=== PATIENT | female | born 1980 | race Caucasian/White ===

== ENCOUNTER 2018-07-28 15:58 | Emergency (ER) | payer OTHER ==
--- NOTE | 2018-07-28 16:27 | PDOC ---
Rapid Medical Evaluation Medical Evaluation: Allergies Allergy/AdvReac Type Severity Reaction Status Date / Time No Known Allergies Allergy Verified 11/06/17 16:17 I have performed a brief in-person evaluation of this patient. 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 07/28/18 16:25
[2018-07-28] MEDS ORDERED: SODIUM CHLORIDE 1,000 ML IV STA (16:28)
[2018-07-28] MEDS ORDERED: ONDANSETRON 4 MG/2 ML VIAL IVPB ONE (16:28)
[2018-07-28 16:30] VITALS: BMI 31.7
[2018-07-28 17:03] LABS: BASO % 0.3 % (0-2.0); EOS % 0.3 % (0-4.5); HEMATOCRIT 38.7 % (32.4-45.2); HEMOGLOBIN 13.8 GM/dL (10.7-15.3); LYMPH % 14.2 % (8-40); MCH 32.3 pg (25.7-33.7); MCHC 35.6 g/dl (32.0-36.0); MEAN CELL VOLUME 90.8 fl (80-96); MEAN PLT VOLUME 8.3 fl (7.5-11.1); MONO % 5.2 % (3.8-10.2); PLATELET COUNT 302 K/MM3 (134-434); RBC 4.27 M/mm3 (3.60-5.2); RDW 12.8 % (11.6-15.6)
[2018-07-28 17:48] LABS: ANION GAP 8 MMOL/L (8-16); BLOOD UREA NITROGEN 8 mg/dL (7-18); CALCIUM 9.1 mg/dL (8.5-10.1); CHLORIDE 102 mmol/L (98-107); CO2 25 mmol/L (21-32); CREATININE 0.5 mg/dL (0.55-1.3); GLUCOSE,RANDOM 83 mg/dL (74-106); POTASSIUM 3.9 mmol/L (3.5-5.1); SODIUM 135 mmol/L (136-145)
[2018-07-28 18:32] LABS: URINE APPEARANCE TURBID; URINE BILIRUBIN NEGATIVE (<2.0 mg/dL); URINE COLOR YELLOW; URINE GLUCOSE (UA) NEGATIVE (NEGATIVE); URINE KETONE 2+ (NEGATIVE); URINE LEUK ESTERASE NEGATIVE (NEGATIVE); URINE NITRITE NEGATIVE (NEGATIVE); URINE PROTEIN 1+ (NEGATIVE); URINE UROBILINOGEN NEGATIVE mg/dL (0.2-1.0)
[2018-07-28 18:37] LABS: EPI CELLS RARE /HPF (FEW); URINE BACTERIA RARE /hpf (NONE SEEN); URINE MUCUS MODERATE
--- NOTE | 2018-07-28 19:27 | PDOC ---
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 She states this is similar to prior miscarriages. She additionally notes nausea and vomiting and mild headache with mild photophobia and phonophobia, mild lightheadedness. Denies dysuria, fever, chills, diarrhea, constipation, chest pain, SOB, leg swelling, or other symptoms. Past History - Past Medical History Allergies/Adverse Reactions: Allergies Allergy/AdvReac Type Severity Reaction Status Date / Time No Known Allergies Allergy Verified 07/28/18 16:30 Home Medications: Ambulatory Orders NK [No Known Home Medication] 07/28/18 COPD: No - Immunization History Immunization Up to Date: Yes - Suicide/Smoking/Psychosocial Hx Smoking History: Never smoked Have you smoked in the past 12 months: No Information on smoking cessation initiated: No Hx Alcohol Use: No Drug/Substance Use Hx: No Review of Systems - Review of Systems Able to Perform ROS?: Yes Comments:: 07/28/18 19:40 GEN: no fever, chills, malaise, generalized weakness, or weight change HEENT: no ear pain, sore throat, vision change, or eye pain CV: no chest pain, palpitations, lightheadedness, syncope, or edema RESP: no cough, wheezing, or SOB GI: abdominal pain, nausea, vomiting, no diarrhea, constipation, or white/black/ bloody stool : vaginal bleeding with clot, no dysuria, hematuria, incontinence, retention, or discharge MSK: low back pain, no neck pain, muscle weakness/pain, or joint swelling/pain NEURO: headache, no seizure, vertigo, numbness, tingling, or focal weakness PSYCH: no substance use, no behavior change SKIN: no jaundice, no rash ROS otherwise negative except as noted in HPI *Physical Exam - Vital Signs Last Vital Signs Temp Pulse Resp BP Pulse Ox 98.0 F 84 16 139/92 97 07/28/18 16:27 07/28/18 16:27 07/28/18 16:27 07/28/18 16:27 07/28/18 16:27 - Physical Exam Comments: 07/28/18 19:41 GENERAL: well-appearing, A/Ox4, no distress, answers questions appropriately HEENT: PERRLA, EOMI, moist mucous membranes NECK/BACK: no midline ttp, no spinal stepoff or deformity, no hematoma, full ROM , neck supple CARDIOVASCULAR: regular rate/rhythm, normal S1S2, no MGR, strong peripheral pulses, capillary refill <2 seconds, extremities wwp, no edema LUNGS/RESPIRATORY: no respiratory distress, CTAB GI/ABDOMEN: symmetric [id number], not visibly gravid, normoactive BS, soft, no ttp, no midline pulsatile masses : no CVA tenderness, pelvic normal externally, scant blood in vaginal vault, os closed, no adnexal ttp or masses, no CMT EXTREMITIES: no muscle atrophy, no acute deformity, no edema SKIN: warm and dry, no pallor, no jaundice, no rash, no bruising, no skin breakdown, no cuts, no lesions NEUROLOGICAL: GCS 15, CN II-XII grossly intact, 5/5 strength proximally and distally, no facial droop Moderate Sedation - Procedure Monitoring Vital Signs: Procedure Monitoring Vital Signs Temperature 98.0 F 07/28/18 16:27 Pulse Rate 84 07/28/18 16:27 Respiratory Rate 16 07/28/18 16:27 Blood Pressure 139/92 07/28/18 16:27 O2 Sat by Pulse Oximetry (%) 97 07/28/18 16:27 ED Treatment Course - LABORATORY CBC & Chemistry Diagram: 07/28/18 16:47 07/28/18 16:47 - ADDITIONAL ORDERS Additional order review: Laboratory Results 07/28/18 07/28/18 07/28/18 16:51 16:47 16:47 Sodium 135 L Potassium 3.9 Chloride 102 Carbon Dioxide 25 Anion Gap 8 BUN 8 Creatinine 0.5 L Creat Clearance w eGFR > 60 Random Glucose 83 Calcium 9.1 Beta HCG, Quant 25270.4 Urine Color Yellow Urine Appearance Turbid Urine pH 5.0 Ur Specific [place] 1.029 Urine Protein 1+ H Urine Glucose (UA) Negative Urine Ketones 2+ H Urine Blood 2+ H Urine Nitrite Negative Urine Bilirubin Negative Urine Urobilinogen Negative Ur Leukocyte Esterase Negative Urine WBC (Auto) 15 Urine RBC (Auto) 3 Ur Epithelial Cells Rare Urine Bacteria Rare Urine Mucus Moderate Blood Type B POSITIVE Antibody Screen Negative 07/28/18 16:47 RBC 4.27 MCV 90.8 MCHC 35.6 RDW 12.8 MPV 8.3 Neutrophils % 80.0 D Lymphocytes % 14.2 D Monocytes % 5.2 Eosinophils % 0.3 Basophils % 0.3 Medical Decision Making - Medical Decision Making 07/28/18 19:42 First trimester female p/w vaginal bleeding and/or lower abdominal pain at <20 wks gestation. Initial Vital Signs Temp Pulse Resp BP Pulse Ox 98.0 F 84 16 139/92 97 07/28/18 16:27 07/28/18 16:27 07/28/18 16:27 07/28/18 16:27 07/28/18 16:27 Exam: As noted in Physical Exam section. DDX IBNLT: threatened/inevitable/incomplete/complete/septic , ectopic, PID, TOA/cervicitis, endometritis, ruptured ovarian cyst, ovarian torsion, malignancy, menorrhagia, endometriosis, rectal bleed, hematuria, constipation, fibroids, etc. W/U ordered: Labs as noted below, TVUS. TX ordered: IVF, Zofran Laboratory Tests 07/28/18 07/28/18 07/28/18 16:47 16:47 16:47 WBC 11.0 H RBC 4.27 Hgb 13.8 Hct 38.7 MCV 90.8 MCH 32.3 MCHC 35.6 RDW 12.8 Plt Count 302 MPV 8.3 Absolute Neuts (auto) 8.8 H Neutrophils % 80.0 D Lymphocytes % 14.2 D Monocytes % 5.2 Eosinophils % 0.3 Basophils % 0.3 Nucleated RBC % 0 Sodium 135 L Potassium 3.9 Chloride 102 Carbon Dioxide 25 Anion Gap 8 BUN 8 Creatinine 0.5 L Creat Clearance w eGFR > 60 Random Glucose 83 Calcium 9.1 Beta HCG, Quant 19983.4 Urine Color Urine Appearance Urine pH Ur Specific [place] Urine Protein Urine Glucose (UA) Urine Ketones Urine Blood Urine Nitrite Urine Bilirubin Urine Urobilinogen Ur Leukocyte Esterase Urine WBC (Auto) Urine RBC (Auto) Ur Epithelial Cells Urine Bacteria Urine Mucus Blood Type B POSITIVE Antibody Screen Negative 07/28/18 16:51 WBC RBC Hgb Hct MCV MCH MCHC RDW Plt Count MPV Absolute Neuts (auto) Neutrophils % Lymphocytes % Monocytes % Eosinophils % Basophils % Nucleated RBC % Sodium Potassium Chloride Carbon Dioxide Anion Gap BUN Creatinine Creat Clearance w eGFR Random Glucose Calcium Beta HCG, Quant Urine Color Yellow Urine Appearance Turbid Urine pH 5.0 Ur Specific [place] 1.029 Urine Protein 1+ H Urine Glucose (UA) Negative Urine Ketones 2+ H Urine Blood 2+ H Urine Nitrite Negative Urine Bilirubin Negative Urine Urobilinogen Negative Ur Leukocyte Esterase Negative Urine WBC (Auto) 15 Urine RBC (Auto) 3 Ur Epithelial Cells Rare Urine Bacteria Rare Urine Mucus Moderate Blood Type Antibody Screen US/ <14WKS US Obstetrical ultrasound Clinical information: possible miscarriage The exam was performed utilizing transabdominal scanning. The exam demonstrates a single viable intrauterine gestation at approximately 9 weeks 4 days. cardiac rate 176 BPM. A small subchorionic implantation bleed is noted. A 3.7 cm subserosal leiomyoma is noted along the uterine fundus. The cervix appears to be closed with an approximately 3.7 cm in length. A 2.7 cm right ovarian cyst is seen containing a small amount of internal debris. The left ovary appears unremarkable. No Doppler evidence of ovarian torsion, sensitivity 70%. No free intraperitoneal fluid is seen. Impression: Single viable intrauterine gestation at approximately 9 weeks 4 days. Small subchorionic implantation bleed. 3.7 cm fundal leiomyoma. 2.7 cm right ovarian cyst. Repeat VS: DISCHARGE The Pt does not require Rhogam. Workup is not concerning for emergency-level pathology at this time. The Pt is appropriate for discharge home w/ close outpatient f/u. The Pt is comfortable with this plan and will follow up with their PAINTER [employer]ILRO[employer] in 1- 3 days. She is counseled to have beta-hCG trended and f/u US within one week. She will take primarily Tylenol for pain. Specific return precautions are discussed and they will come back to the ER if necessary. *DC/Admit/Observation/Transfer Diagnosis at time of Disposition: Threatened in first trimester, Hyperemesis arising during Subchorionic hemorrhage in first trimester Qualifiers: Fetus number: single or unspecified fetus Qualified Code(s): O41.8X10 - Other specified disorders of amniotic fluid and membranes, first trimester, not applicable or unspecified; O46.8X1 - Other antepartum hemorrhage, first trimester - Discharge Dispostion Condition at time of disposition: Stable Decision to Admit order: No - Referrals - Patient Instructions Additional Instructions: You were seen in the ER for vaginal bleeding in . We did an exam, laboratory work on your blood and urine, and an ultrasound. After our assessment , we believe that you have NOT had a miscarriage at this time, and the bleeding you experienced is most likely due to a "subchorionic hemorrhage" that was found on the ultrasound. This does put you at higher risk for miscarriage, so you will need to follow up closely with an [employer] or return to the ER to recheck your hormone levels and repeat the ultrasound within a week. We do not believe you are having a medical emergency at this time, and you are safe to go home. Please take Tylenol for any mild-moderate pain. Follow up with your senior architect/design manager and primary care provider in the next 1-3 days. Call their clinic [facility], tell them you were seen in the ER, and tell them you need an appointment. Please come back to the ER at any time (24 hours a day) for any new or worsening symptoms, like worsening pelvic pain, discharge, high fever, headache, seizure, fainting, anemia, large amount of blood loss, or other symptoms. If you are having severe or life threatening symptoms, or symptoms that make it unsafe to drive or have someone drive you, please call 911. - Post Discharge Activity
[2018-07-28] MEDS ORDERED: ONDANSETRON 4 MG/2 ML VIAL ONE ×2 (19:31→19:37)
--- NOTE | 2018-07-28 19:38 | PDOC ---
Attending Attestation - HPI HPI: 07/28/18 19:46 The patient is a 37 year old female (), lmp 10, with no significant past medical history who presents to the emergency department with vaginal bleeding since earlier today. The patient reports that she was at home today when she noted some vaginal bleeding described as bright red blood. She states that she felt as if she passed a large clot. The patient reports that she is concerned for a miscarriage as, she has experienced it in the past and, she states that it feels similar. The patient reports that she was seen by her OB 1 weeks ago by which everything was said to be normal. The patient also reports some associated nausea, vomiting, and headache with photophobia and phonophobia . On exam, the patient reports that her bleeding has slowed down since earlier . she denies any urinary symptoms. She denies any smoking, drinking or drug use. The patient denies any other symptoms. She denies any fever, chills, diarrhea, constipation, she denies any chest pain, shortness of breath, or dizziness. The patient denies any other complaints. Documentation prepared by Ascencion Ibarra, acting as medical care administrator for Igor Eugene MD. <Ascencion Ibarra - Last Filed: 07/28/18 19:46> - Resident Resident Name: Giselle Reno - ED Attending Attestation I have performed the following: I have examined & evaluated the patient, The case was reviewed & discussed with the resident, I agree w/resident's findings & plan, Exceptions are as noted - Physicial Exam PE: 07/28/18 20:01 Agree with exam as documented by resident - Medical Decision Making 07/28/18 20:02 Viable with elevated risk of miscarriage. Investigations showed a closed os with 9w viable IUP a/w small subchorionic hemorrhage, Rh+ Will need close expectant management to follow the , trend hcg, and repeat TVUS within a week. Pt has an OB who is providing pre-jared care Pt's nausea improved after tx c/w plan for close OB follow up <Igor Eugene - Last Filed: 07/28/18 22:20>
[2018-07-28 22:42] VITALS: BP 132/88; PULSE 70; TEMP 98.6
== END 2018-07-28 22:42 | disposition home or self-care (01) ==
LOC: JER 15:58
DX: O26.891 Other specified pregnancy related conditions, first trimester (principal); O21.0 Mild hyperemesis gravidarum; O41.8X10 Other specified disorders of amniotic fluid and membranes, first trimester, not applicable or unspecified; O46.8X1 Other antepartum hemorrhage, first trimester; O34.11 Maternal care for benign tumor of corpus uteri, first trimester; Z3A.09 9 weeks gestation of pregnancy; O34.81 Maternal care for other abnormalities of pelvic organs, first trimester; N83.291 Other ovarian cyst, right side
CPT/HCPCS: 36415; 76801-TC; 80048; 81003; 81015; 84702; 85025; 86850; 86900; 86901; 99283-25; J7030

== ENCOUNTER 2019-02-18 23:00 | Inpatient (IN) | payer OTHER ==
[2019-02-19] MEDS ORDERED: BUTORPHANOL TARTRATE 2 MG/ML VIAL ONE ×2 (00:22→05:40)
[2019-02-19] MEDS ORDERED: PROMETHAZINE HCL 25 MG/1 ML VIAL ONE ×2 (00:23→05:41)
[2019-02-19 00:31] LABS: BASO % 0.1 % (0-2.0); EOS % 0.8 % (0-4.5); HEMATOCRIT 37.4 % (32.4-45.2); HEMOGLOBIN 12.5 GM/dL (10.7-15.3); LYMPH % 13.2 % (8-40); MCH 29.6 pg (25.7-33.7); MCHC 33.4 g/dl (32.0-36.0); MEAN CELL VOLUME 88.6 fl (80-96); MEAN PLT VOLUME 9.1 fl (7.5-11.1); MONO % 6.6 % (3.8-10.2); NEUT % 79.3 % (42.8-82.8); PLATELET COUNT 214 K/MM3 (134-434); RBC 4.22 M/mm3 (3.60-5.2); RDW 14.8 % (11.6-15.6); WHITE BLOOD COUNT 12.1 K/mm3 (4.0-10.0)
[2019-02-19] MEDS ORDERED: DEXTROSE 5%-LACTATED RINGERS 1,000 ML IV SCH (00:45)
[2019-02-19] MEDS ORDERED: BUTORPHANOL TARTRATE 2 MG/ML VIAL IVPB ONE ×2 (00:45→06:00)
[2019-02-19] MEDS ORDERED: PROMETHAZINE HCL 25 MG/1 ML VIAL IVPB ONE ×2 (00:45→06:00)
[2019-02-19 00:46] LABS: INR 0.92 (0.83-1.09); PROTHROMBIN TIME (PATIENT) 10.9 SEC (9.7-13.0)
[2019-02-19 00:48] LABS: ACTIVATED PTT 25.9 SECONDS (25.2-36.5)
[2019-02-19 00:52] LABS: BLOOD UREA NITROGEN 6.6 mg/dL (7-18); CALCIUM 8.9 mg/dL (8.5-10.1); CREATININE 0.7 mg/dL (0.55-1.3); POTASSIUM 3.8 mmol/L (3.5-5.1)
[2019-02-19 01:20] VITALS: BMI 41.0
--- NOTE | 2019-02-19 06:04 | HP ---
Past Medical History - Admission Chief Complaint: Labor pain History of Present Illness: 38 yo , LMP 05/21/18, EDC 02/25/19, @39 weeks gestation, admitted for rupture of membrane associated with labor pain. Upon admission she was 2cm dilated. History Source: Patient Limitations to Obtaining History: No Limitations - Past Medical History ...: 5 ...Para: 0 ...Term: 0 ...: 0 ...Spon : 4 ...Induced : 0 ...Multiple Gestation: 0 ...LMP: 05/21/18 ... Weeks Gestation by Dates: 39.0 ...EDC by Dates: 02/25/19 ...EDC by Sono: 02/25/19 - Past Surgical History Past Surgical History: Yes: None Hx Myomectomy: No Hx Transabdominal Cerclage: No - Smoking History Smoking history: Never smoked Have you smoked in the past 12 months: No - Alcohol/Substance Use Hx Alcohol Use: No History of Substance Use: reports: None - Social History History of Recent Travel: No Home Medications - Allergies Allergies/Adverse Reactions: Allergies Allergy/AdvReac Type Severity Reaction Status Date / Time No Known Allergies Allergy Verified 07/28/18 16:30 - Home Medications Home Medications: Ambulatory Orders Vitamins (Sjr) - 1 tab PO DAILY 02/11/19 Family Disease History - Family Disease History Family History: Unremarkable Review of Systems - Review of Systems Constitutional: reports: No Symptoms Eyes: reports: No Symptoms HENT: reports: No Symptoms Neck: reports: No Symptoms Cardiovascular: reports: No Symptoms Respiratory: reports: No Symptoms Gastrointestinal: reports: No Symptoms Genitourinary: reports: Pain, Other (Rupture of membrane) Breasts: reports: No Symptoms Reported Musculoskeletal: reports: No Symptoms Integumentary: reports: No Symptoms Neurological: reports: No Symptoms Endocrine: reports: No Symptoms Hematology/Lymphatic: reports: No Symptoms Psychiatric: reports: No Symptoms Pain Intensity: 9 Physical Exam - Maternity Vital Signs: Vital Signs Temperature 98.0 F 02/19/19 04:00 Pulse Rate 98 H 02/19/19 04:00 Respiratory Rate 02/19/19 04:00 Blood Pressure 134/78 02/19/19 04:00 O2 Sat by Pulse Oximetry (%) Constitutional: Yes: Well Nourished Eyes: Yes: Conjunctiva Clear HENT: Yes: Atraumatic Neck: Yes: Supple Cardiovascular: Yes: Regular Rate and Rhythm Lungs: Clear to auscultation - Abdominal Exam/OB Number of Fetuses: Single Presentation: Vertex - Vaginal Exam/OB Dilatation (cm): 2 Effacement (%): 70 Amniotic Membrane Status: Ruptured Amniotic Fluid: Yes: Clear Presentation: Vertex/Position Station: -2 - Physical Exam Musculoskeletal: Yes: WNL Extremities: Yes: WNL ...Motor Strength: WNL Psychiatric: Yes: Alert, Oriented - Labs Lab Results: CBC, BMP 02/19/19 00:00 02/19/19 00:00 Problem List - Problems (1) 39 weeks gestation of Code(s): Z3A.39 - 39 WEEKS GESTATION OF (2) Spontaneous rupture of amniotic membranes Code(s): AYD4706 - Assessment/Plan Spontaneous rupture of membrane 39 weeks gestation Admit to L&D Analgesia as needed Anticipate
[2019-02-19] MEDS ORDERED: DINOPROSTONE 10 MG VAGINAL SUPPOSITORY VG ONE (07:00)
[2019-02-19] MEDS ORDERED: FENTANYL/BUPIVACAINE/NS/PF - PCEA - 50 ML DISP.SYRIN EP ONE ×3 (09:13→18:49)
[2019-02-19] MEDS ORDERED: NALOXONE HCL 0.4 MG/ML VIAL IVPUSH PRN (09:21)
[2019-02-19] MEDS ORDERED: BUPIVACAINE HCL/PF 0.25% (2.5MG/ML) 10 ML VIAL ONE (09:25)
[2019-02-19] MEDS: ELECTROLYTE-148 SOLN 1,000 ML IV SCH ×3 (09:30→17:43)
[2019-02-19] MEDS: FENTANYL/BUPIVACAINE/NS/PF - PCEA - 50 ML DISP.SYRIN EP SCH (09:40)
[2019-02-19] MEDS ORDERED: ELECTROLYTE-148 SOLN 1,000 ML IV ONE (10:30)
[2019-02-19] MEDS ORDERED: AMPICILLIN SODIUM 2 GM VIAL ONE (17:13)
--- NOTE | 2019-02-19 19:39 | PN ---
Progress Note (short form) - Note Progress Note: Patient seen and evaluated, she's lying comfortably in bed. Epidural on board. Temp : 99.5 FHR : 175 Bpm, no accelerations. [place] : + Contractions Q 1min VE : 3-4/ 70 / -2 A/P : Status post cervidil induction Non Reassuring Heart Rate Pre op for primary Consent signed Anesthesia to see patient Problem List - Problems (1) 39 weeks gestation of Code(s): Z3A.39 - 39 WEEKS GESTATION OF (2) Spontaneous rupture of amniotic membranes Code(s): OIS0771 - (3) Non-reassuring heart rate or rhythm affecting management of mother Code(s): O36.8390 - MATERN CARE FOR ABNLT FETL HRT RATE OR RHYM, UNSP TRI, UNSP
[2019-02-19] MEDS ORDERED: BUPIVACAINE HCL/PF 0.5% (5MG/ML) 10 ML VIAL ONE (20:11)
[2019-02-19] MEDS ORDERED: PROPOFOL 20 ML ONE ×2 (20:14→20:55)
[2019-02-19] MEDS ORDERED: ceFAZolin SODIUM 1 GM VIAL ONE (20:26)
[2019-02-19] MEDS ORDERED: VECURONIUM BROMIDE 10 MG VIAL ONE (20:31)
[2019-02-19] MEDS ORDERED: DEXAMETHASONE SOD PHOSPHATE 4 MG/1 ML VIAL ONE (20:31)
[2019-02-19] MEDS ORDERED: OXYTOCIN 10 UNITS/ML VIAL ONE ×2 (20:31→20:44)
[2019-02-19] MEDS ORDERED: morphine SULFATE/PF 0.5 MG/ML (2cc Syringe - QUVA) ONE ×3 (20:41)
[2019-02-19] MEDS ORDERED: PHENYLEPHRINE HCL 10 MG/1 ML SINGLE DOSE VIAL ONE (20:50)
[2019-02-19] MEDS ORDERED: NEOSTIGMINE METHYLSULFATE 0.5 MG/1 ML - 10 ML MDV ONE (20:51)
[2019-02-19] MEDS ORDERED: GLYCOPYRROLATE 0.2 MG/1 ML VIAL ONE (20:52)
--- NOTE | 2019-02-19 20:57 | RAPID ---
Physical Examination Vital Signs: Vital Signs Temperature 100.1 F H 02/19/19 20:00 Pulse Rate 112 H 02/19/19 20:00 Respiratory Rate 20 02/19/19 20:00 Blood Pressure 131/79 02/19/19 20:00 O2 Sat by Pulse Oximetry (%) 99 02/19/19 20:00 Constitutional: Yes: Moderate Distress Eyes: Yes: WNL HENT: Yes: WNL Labs: CBC, BMP 02/19/19 00:00 02/19/19 00:00 Rapid Response - Rapid Response Assessment: Rapid response code 99 called at approximately at 8:10 PM. Patient was found to be verbally unresponsive. Patient appeared somnolent. As per OR staff patient never lost pulse. Code team arrived to the unit. Patient was being moved from L&D floor to L&D OR for emergent C-sxn. Vitals on arrival: 100.1F BP131/79 HR140 RR 20 O2 Sat 99% Earlier today: -Febrile to 101F earlier today at 6:10PM. -epidural at 9:40AM. She was febrile to 100.1 at 8PM. Laboratory Last Values WBC 12.1 K/mm3 (4.0-10.0) H 02/19/19 00:00 RBC 4.22 M/mm3 (3.60-5.2) 02/19/19 00:00 Hgb 12.5 GM/dL (10.7-15.3) 02/19/19 00:00 Hct 37.4 % (32.4-45.2) 02/19/19 00:00 MCV 88.6 fl (80-96) 02/19/19 00:00 MCH 29.6 pg (25.7-33.7) 02/19/19 00:00 MCHC 33.4 g/dl (32.0-36.0) 02/19/19 00:00 RDW 14.8 % (11.6-15.6) D 02/19/19 00:00 Plt Count 214 K/MM3 (134-434) D 02/19/19 00:00 MPV 9.1 fl (7.5-11.1) 02/19/19 00:00 Absolute Neuts (auto) 9.6 K/mm3 (1.5-8.0) H 02/19/19 00:00 Neutrophils % 79.3 % (42.8-82.8) 02/19/19 00:00 Lymphocytes % 13.2 % (8-40) 02/19/19 00:00 Monocytes % 6.6 % (3.8-10.2) 02/19/19 00:00 Eosinophils % 0.8 % (0-4.5) D 02/19/19 00:00 Basophils % 0.1 % (0-2.0) 02/19/19 00:00 Nucleated RBC % 0 % (0-0) 02/19/19 00:00 PT with INR 10.90 SEC (9.7-13.0) 02/19/19 00:00 INR 0.92 (0.83-1.09) 02/19/19 00:00 PTT (Actin FS) 25.9 SECONDS (25.2-36.5) 02/19/19 00:00 Sodium 138 mmol/L (136-145) 02/19/19 00:00 Potassium 3.8 mmol/L (3.5-5.1) 02/19/19 00:00 Chloride 108 mmol/L (98-107) H 02/19/19 00:00 Carbon Dioxide 19 mmol/L (21-32) L 02/19/19 00:00 Anion Gap 11 MMOL/L (8-16) 02/19/19 00:00 BUN 6.6 mg/dL (7-18) L 02/19/19 00:00 Creatinine 0.7 mg/dL (0.55-1.3) 02/19/19 00:00 Est GFR (CKD-EPI)AfAm 128.28 02/19/19 00:00 Est GFR (CKD-EPI)NonAf 110.69 02/19/19 00:00 Random Glucose 137 mg/dL (74-106) H 02/19/19 00:00 Calcium 8.9 mg/dL (8.5-10.1) 02/19/19 00:00 RPR Titer Nonreactive (NONREACTIVE) 02/19/19 00:00 HIV 1&2 Antibody Screen Negative 02/19/19 00:00 HIV P24 Antigen Negative 02/19/19 00:00 Blood Type B POSITIVE 02/19/19 00:00 Antibody Screen Negative 02/19/19 00:00 A/P: 38 y.o. F PMH 4 spont abortions presented for elective C-sxn at 39 weeks. Pt found to be unresponsive in L&D unit. Rapid response code 99 initiated. #Recommend if febrile, botello-culture for poss source of fever #Tylenol PRN for fevers #Trend WBCs Rest of care per [employer] CONSULTANT
[2019-02-19 21:00] LABS: ARTERIAL BLD GAS O2 SATURATION 62.1 % (95-98); ARTERIAL BLOOD GAS BASE EXCESS -2.3 meq/l (-2-2); ARTERIAL BLOOD GAS PCO2 43.5 mmHg (35-45); ARTERIAL BLOOD GAS pH 7.34 (7.35-7.45)
[2019-02-19] MEDS ORDERED: METHYLERGONOVINE MALEATE 0.2 MG/1 ML AMP IM PRN (21:01)
[2019-02-19] MEDS ORDERED: IBUPROFEN 800 MG/8 ML IJ IVPB PRN (21:01)
[2019-02-19 21:03] LABS: VENOUS PC02 43.2 mmHg (41-51); VENOUS PH 7.34 (7.31-7.41); VENOUS PO2 30.2 mmHg (30-40)
[2019-02-19 21:10] LABS: ARTERIAL BLOOD GAS PO2 29.3 mmHg (80-105)
--- NOTE | 2019-02-19 21:10 | OP ---
Operative Note - Note: Operative Date: 02/19/19 Pre-Operative Diagnosis: Nonreassuring Heart Rate / Chorioamnionitis Operation: Primary Low Transverse Findings: Baby girl in cephallic presentation Multiple loop around the neck and body Post-Operative Diagnosis: Same as Pre-op Surgeon: Abeba Buenrostro Installment Loan Collector: Troy Barrientos Anesthesia: General Specimens Removed: Placenta Estimated Blood Loss (mls): 600
--- NOTE | 2019-02-19 21:17 | PN ---
Progress Note (short form) - Note Progress Note: Patient being prepped for by nurse. Patient noted to be unresponsive by nurse. Nurse called for help. Dr went to the room and try to revive patient. Rapid response called. Patient was immediately weeled to the OR. Anesthesiologist was present for stat . A/P : 39 weeks gestation Non Reassuring Heart Rate Chorioamnionitis Stat Problem List - Problems (1) 39 weeks gestation of Code(s): Z3A.39 - 39 WEEKS GESTATION OF (2) Spontaneous rupture of amniotic membranes Code(s): MRD3245 - (3) Non-reassuring heart rate or rhythm affecting management of mother Code(s): O36.8390 - MATERN CARE FOR ABNLT FETL HRT RATE OR RHYM, UNSP TRI, UNSP
[2019-02-19] MEDS ORDERED: ONDANSETRON 4 MG/2 ML VIAL IVPUSH PRN (21:26)
[2019-02-19] MEDS: OXYTOCIN 20 UNITS in 0.9% NS 20 UNIT/1,000 ML INFUS.BAG IV SCH (21:30)
[2019-02-19] MEDS ORDERED: OXYTOCIN 20 UNITS in 0.9% NS 20 UNIT/1,000 ML INFUS.BAG IV ONE ×2 (21:40→23:38)
[2019-02-20] MEDS: CEFAZOLIN 1 GM/D5W 1 GM/50 ML BAG IVPB SCH ×3 (01:47→17:08)
--- NOTE | 2019-02-20 01:55 | PN ---
Progress Note (short form) - Note Progress Note: 02.19.2019.\ I assisted Dr. Buenrostro at the c/section throughout the entirety of the case.
[2019-02-20] MEDS: FERROUS SO4 325 MG TABLET (FP) PO SCH ×3 (07:02→22:22)
--- NOTE | 2019-02-20 07:36 | PN ---
Progress Note, Physician Chief Complaint: s/p c section under general anesthesia post op day one History of Present Illness: Patient was laboring with epidural analgesia when she was planned for c section. She then became suddenly unresponsive with no apparent explanation and a decision was made to proceed with general anesthesia. She was extubated at the end of the surgery with resolution of her altered mental status. Duramorph was dosed in the epidural for post op pain control. - Current Medication List Current Medications: Active Medications Bisacodyl (Dulcolax Suppository -) 10 mg RC PRN PRN PRN Reason: CONSTIPATION Diphenhydramine HCl (Benadryl Injection -) 25 mg IVPUSH Q4H PRN PRN Reason: Pruritis Fentanyl (Sublimaze Injection -) 50 mcg IVPUSH [id number] PRN PRN Reason: PAIN-PACU ORDER X 4 DOSES ONLY Fentanyl/Bupivacaine/Sodium Chlor (Bupivicaine 0.125%/Fentanyl 2mcg/Ml Pcea) 50 ml EP ASDIR [facility]; Protocol Last Admin: 02/19/19 09:40 Dose: 50 ml Ferrous Sulfate (Feosol -) 325 mg PO BID [facility] Last Admin: 02/20/19 07:02 Dose: Not Given Dextrose/Lactated Ringer's (D5-Lr -) 1,000 mls @ 125 mls/hr IV ASDIR RE[facility] Parenteral Electrolytes (Plasma-Lyte 148 -) 1,000 mls @ 125 mls/hr IV ASDIR REVA Last Admin: 02/19/19 17:43 Dose: 125 mls/hr Cefazolin Sodium (Ancef 1 Gm Premixed Ivpb -) 1 gm in 50 mls @ 100 mls/hr IVPB Q8H-IV REVA Stop: 02/21/19 01:59 Last Admin: 02/20/19 01:47 Dose: 100 mls/hr Oxytocin/Sodium Chloride (Normal Saline+20 Units Oxytocin -) 20 unit in 1,000 mls @ 125 mls/hr IV ASDIR [facility] Last Admin: 02/19/19 21:30 Dose: 125 mls/hr Lactated Ringer's (Lactated Ringers Solution) 1,000 mls @ 125 mls/hr IV [facility]IR [facility] Ibuprofen (Motrin -) 600 mg PO Q4H PRN PRN Reason: PAIN LEVEL 1 - 3 Ibuprofen (Caldolor Injection -) 800 mg IVPB Q8H PRN PRN Reason: PAIN LEVEL 4 - 6 Methylergonovine Maleate (Methergine Injection -) 0.2 mg IM Q4H PRN PRN Reason: Excessive Bleeding (L&D) Naloxone HCl (Narcan -) 0.4 mg IVPUSH PRN PRN PRN Reason: Sedation Ondansetron HCl (Zofran Injection) 4 mg IVPUSH Q4H PRN PRN Reason: NAUSEA Multivit/Folic Acid/Iron ( Vitamins (Sjr) -) 1 tab PO DAILY REVA Simethicone (Mylicon -) 80 mg PO Q4H PRN PRN Reason: GAS - Objective Vital Signs: Vital Signs Temperature 98.1 F 02/20/19 06:00 Pulse Rate 88 02/20/19 06:00 Respiratory Rate 20 02/20/19 06:00 Blood Pressure 121/59 L 02/20/19 06:00 O2 Sat by Pulse Oximetry (%) 99 02/19/19 22:00 Constitutional: Yes: Well Nourished Cardiovascular: Yes: WNL Respiratory: Yes: WNL Gastrointestinal: Yes: WNL Labs: CBC, BMP 02/19/19 00:00 INR, PTT INR 0.92 (0.83-1.09) 02/19/19 00:00 Assessment/Plan No adverse effects of anesthetic, pain controlled, epidural removed this AM, no further intervention on the part of the anesthesia team.
[2019-02-20 09:03] LABS: BASO % 0.2 % (0-2.0); HEMATOCRIT 30.5 % (32.4-45.2); HEMOGLOBIN 10.1 GM/dL (10.7-15.3); LYMPH % 9.7 % (8-40); MCH 29.5 pg (25.7-33.7); MCHC 33.3 g/dl (32.0-36.0); MEAN CELL VOLUME 88.7 fl (80-96); MEAN PLT VOLUME 9.2 fl (7.5-11.1); NEUT % 84.1 % (42.8-82.8); PLATELET COUNT 201 K/MM3 (134-434); RBC 3.44 M/mm3 (3.60-5.2); RDW 14.9 % (11.6-15.6); WHITE BLOOD COUNT 18.2 K/mm3 (4.0-10.0)
[2019-02-20] MEDS: PRENATAL VITAMINS W/ FOLIC ACID TABLET (FP) PO SCH (10:00)
[2019-02-20] MEDS: IBUPROFEN 600 MG TABLET (FP) PO PRN (13:43)
[2019-02-20] MEDS: ACETAMINOPHEN 325 MG TABLET (FP) PO PRN ×2 (13:44→23:59)
[2019-02-20] MEDS: SIMETHICONE 80 MG TAB.CHEW (FP) PO PRN ×2 (13:45→23:59)
[2019-02-20] MEDS ORDERED: CEFAZOLIN 2 GM in DEXTROSE 5%-WATER - 50 ML IVPB ONE (15:45)
[2019-02-20] MEDS ORDERED: oxyCODONE HCL 5 MG TABLET PO PRN (15:51)
[2019-02-20] MEDS: DEXTROSE 5%-LACTATED RINGERS 1,000 ML IV SCH (15:57)
--- NOTE | 2019-02-20 18:53 | PN ---
Post Progress Note - Subjective Subjective: 38 yo Para 1 status post primary , seen and evaluated. She's doing well, no headache, blurry vision nor epigastric pain. She's alert and oriented. Post Day: 1 Type of Delivery: Primary C/S Vital Signs: Vital Signs Temperature 97.9 F 02/20/19 17:10 Pulse Rate 85 02/20/19 17:10 Respiratory Rate 20 02/20/19 17:10 Blood Pressure 129/55 L 02/20/19 17:10 O2 Sat by Pulse Oximetry (%) 99 02/19/19 22:00 Breast Exam: Yes: Soft Uterus: Yes: Fundus @ umbilicus Incision: Yes: Dressing dry and intact Abdomen/GI: Yes: Abdomen soft, Tolerating PO Lochia: Yes: Rubra Lochia, amount: Small Extremities: Yes: Calves non-tender Perineum: Yes: Intact Activity: Ambulating - Labs Labs: CBC WBC 18.2 K/mm3 (4.0-10.0) H 02/20/19 07:20 RBC 3.44 M/mm3 (3.60-5.2) L 02/20/19 07:20 Hgb 10.1 GM/dL (10.7-15.3) L 02/20/19 07:20 Hct 30.5 % (32.4-45.2) L D 02/20/19 07:20 MCV 88.7 fl (80-96) 02/20/19 07:20 MCH 29.5 pg (25.7-33.7) 02/20/19 07:20 MCHC 33.3 g/dl (32.0-36.0) 02/20/19 07:20 RDW 14.9 % (11.6-15.6) 02/20/19 07:20 Plt Count 201 K/MM3 (134-434) 02/20/19 07:20 MPV 9.2 fl (7.5-11.1) 02/20/19 07:20 Absolute Neuts (auto) 15.3 K/mm3 (1.5-8.0) H 02/20/19 07:20 Neutrophils % 84.1 % (42.8-82.8) H 02/20/19 07:20 Lymphocytes % 9.7 % (8-40) D 02/20/19 07:20 Monocytes % 6.0 % (3.8-10.2) 02/20/19 07:20 Eosinophils % 0.0 % (0-4.5) D 02/20/19 07:20 Basophils % 0.2 % (0-2.0) 02/20/19 07:20 Nucleated RBC % 0 % (0-0) 02/20/19 07:20 Problem List - Problems (1) 39 weeks gestation of Code(s): Z3A.39 - 39 WEEKS GESTATION OF (2) Spontaneous rupture of amniotic membranes Code(s): XZD8112 - (3) Non-reassuring heart rate or rhythm affecting management of mother Code(s): O36.8390 - MATERN CARE FOR ABNLT FETL HRT RATE OR RHYM, UNSP TRI, UNSP (4) Status post primary low transverse section Code(s): Z98.891 - HISTORY OF UTERINE SCAR FROM PREVIOUS SURGERY (5) Chorioamnionitis, delivered, current hospitalization Code(s): O41.1290 - CHORIOAMNIONITIS, UNSP TRIMESTER, NOT APPLICABLE OR UNSP Assessment/Plan Status post primary Neurology consult ( in light of black out episode yesterday ) Continue close observation
[2019-02-21] MEDS: oxyCODONE HCL 5 MG TABLET PO PRN
--- NOTE | 2019-02-21 05:30 | PN ---
Post Progress Note - Subjective Subjective: 38 yo Para 1 status post primary , seen and evaluated. Doing well, she's ambulating. Post Day: 2 Type of Delivery: Primary C/S Vital Signs: Vital Signs Temperature 97.9 F 02/20/19 22:00 Pulse Rate 79 02/20/19 22:00 Respiratory Rate 18 02/20/19 22:00 Blood Pressure 126/73 02/20/19 22:00 O2 Sat by Pulse Oximetry (%) 99 02/19/19 22:00 Breast Exam: Yes: Soft Uterus: Yes: Fundus Firm Incision: Yes: Dressing dry and intact Abdomen/GI: Yes: Abdomen soft, Tolerating PO Lochia: Yes: Rubra Lochia, amount: Small Extremities: Yes: Calves non-tender Perineum: Yes: Intact Activity: Ambulating - Labs Labs: CBC WBC 18.2 K/mm3 (4.0-10.0) H 02/20/19 07:20 RBC 3.44 M/mm3 (3.60-5.2) L 02/20/19 07:20 Hgb 10.1 GM/dL (10.7-15.3) L 02/20/19 07:20 Hct 30.5 % (32.4-45.2) L D 02/20/19 07:20 MCV 88.7 fl (80-96) 02/20/19 07:20 MCH 29.5 pg (25.7-33.7) 02/20/19 07:20 MCHC 33.3 g/dl (32.0-36.0) 02/20/19 07:20 RDW 14.9 % (11.6-15.6) 02/20/19 07:20 Plt Count 201 K/MM3 (134-434) 02/20/19 07:20 MPV 9.2 fl (7.5-11.1) 02/20/19 07:20 Absolute Neuts (auto) 15.3 K/mm3 (1.5-8.0) H 02/20/19 07:20 Neutrophils % 84.1 % (42.8-82.8) H 02/20/19 07:20 Lymphocytes % 9.7 % (8-40) D 02/20/19 07:20 Monocytes % 6.0 % (3.8-10.2) 02/20/19 07:20 Eosinophils % 0.0 % (0-4.5) D 02/20/19 07:20 Basophils % 0.2 % (0-2.0) 02/20/19 07:20 Nucleated RBC % 0 % (0-0) 02/20/19 07:20 Problem List - Problems (1) 39 weeks gestation of Code(s): Z3A.39 - 39 WEEKS GESTATION OF (2) Spontaneous rupture of amniotic membranes Code(s): DSP2561 - (3) Non-reassuring heart rate or rhythm affecting management of mother Code(s): O36.8390 - MATERN CARE FOR ABNLT FETL HRT RATE OR RHYM, UNSP TRI, UNSP (4) Status post primary low transverse section Code(s): Z98.891 - HISTORY OF UTERINE SCAR FROM PREVIOUS SURGERY (5) Chorioamnionitis, delivered, current hospitalization Code(s): O41.1290 - CHORIOAMNIONITIS, UNSP TRIMESTER, NOT APPLICABLE OR UNSP Assessment/Plan Status post primary Ambulation Analgesia as needed Continue routine post op care
[2019-02-21] MEDS: SIMETHICONE 80 MG TAB.CHEW (FP) PO PRN ×3 (06:09→20:35)
[2019-02-21] MEDS: ACETAMINOPHEN 325 MG TABLET (FP) PO PRN ×3 (06:09→20:35)
[2019-02-21] MEDS: IBUPROFEN 600 MG TABLET (FP) PO PRN ×3 (06:10→20:35)
[2019-02-21] MEDS: FERROUS SO4 325 MG TABLET (FP) PO SCH ×2 (09:19→21:57)
[2019-02-21] MEDS: PRENATAL VITAMINS W/ FOLIC ACID TABLET (FP) PO SCH (09:19)
[2019-02-21] MEDS: BISACODYL 10 MG SUPP.RECT RC PRN (09:19)
--- NOTE | 2019-02-21 09:51 | CON.NEURO ---
Consult - Past Surgical History Past Surgical History: Yes: None - Alcohol/Substance Use Hx Alcohol Use: No History of Substance Use: reports: None - Smoking History Smoking history: Never smoked Have you smoked in the past 12 months: No - Social History History of Recent Travel: No Home Medications - Allergies Allergies/Adverse Reactions: Allergies Allergy/AdvReac Type Severity Reaction Status Date / Time No Known Allergies Allergy Verified 07/28/18 16:30 - Home Medications Home Medications: Ambulatory Orders Vitamins (Sjr) - 1 tab PO DAILY 02/11/19 Physical Exam-Neuro Vital Signs: Vital Signs Temperature 97.9 F 02/20/19 22:00 Pulse Rate 79 02/20/19 22:00 Respiratory Rate 18 02/20/19 22:00 Blood Pressure 126/73 02/20/19 22:00 O2 Sat by Pulse Oximetry (%) 99 02/19/19 22:00 Labs: CBC, BMP 02/20/19 07:20 02/19/19 00:00 INR, PTT INR 0.92 (0.83-1.09) 02/19/19 00:00 Assessment/Plan cc Episode of passing out during labor HPI 38 year old female first , she had episode of ? passing out and panic reaction. She has history of panic reaction. She was breathing very fast and she was told that she had fever and would not be hold baby and she got very nervous. Patient has ct section. She has no history of seizure, no tongue bite or incontinence. She denies any focal neurological illness She is not taking any medicaiton, and she has no high blood pressure during prenancy. PMH as above SH,ROS,FH reviewed in chart Allergies/Adverse Reactions: Allergies Allergy/AdvReac Type Severity Reaction Status Date / Time No Known Allergies Allergy Verified 07/28/18 16:30 Home Medications: Vitamins (Sjr) - 1 tab PO DAILY 02/11/19 NEUROLOGICAL EXAMINATION Alert oriented x 3, neck is supple cn EOMI, pupils reactive, no face asymmetry Motor 5/5 all intact sensation is normal no brain imaging done Assessment/Plan 38 year old female have episode of passing out, there is no focal neurological symptoms or seizure like activity. Patient neurological examination is normal, no history of seizure in family either. Clinically less likley to be seizure, Possible syncopal episode vs panic reaction Plan: suggest to do ct head and eeg, can be done as outpatient - No need for AED Thanking you so much Hari Casarez MD
[2019-02-21] MEDS: DEXTROSE 5%-LACTATED RINGERS 1,000 ML IV SCH ×3 (11:02→19:57)
[2019-02-21] MEDS: ELECTROLYTE-148 SOLN 1,000 ML IV SCH ×2 (11:19→19:57)
[2019-02-21] MEDS: FENTANYL/BUPIVACAINE/NS/PF - PCEA - 50 ML DISP.SYRIN EP SCH ×2 (11:19→19:57)
[2019-02-21] MEDS: LACTATED RINGERS SOLUTION 1,000 ML IV SCH ×2 (19:55→19:57)
[2019-02-21] MEDS: OXYTOCIN 20 UNITS in 0.9% NS 20 UNIT/1,000 ML INFUS.BAG IV SCH (19:57)
[2019-02-21] MEDS ORDERED: SENNOSIDES/DOCUSATE COMBO (SENNA PLUS) TABLET (UD) PO PRN (21:43)
[2019-02-22] MEDS: SIMETHICONE 80 MG TAB.CHEW (FP) PO PRN ×3 (00:05→12:07)
[2019-02-22] MEDS: oxyCODONE HCL 5 MG TABLET PO PRN ×2 (00:05→12:08)
[2019-02-22] MEDS: ACETAMINOPHEN 325 MG TABLET (FP) PO PRN ×2 (00:06→09:15)
[2019-02-22 08:08] LABS: BASO % 0.3 % (0-2.0); EOS % 2.9 % (0-4.5); HEMATOCRIT 28.7 % (32.4-45.2); HEMOGLOBIN 9.7 GM/dL (10.7-15.3); MCH 29.9 pg (25.7-33.7); MCHC 33.8 g/dl (32.0-36.0); MEAN CELL VOLUME 88.6 fl (80-96); MEAN PLT VOLUME 8.3 fl (7.5-11.1); MONO % 6.7 % (3.8-10.2); NEUT % 66.1 % (42.8-82.8); PLATELET COUNT 223 K/MM3 (134-434); RBC 3.24 M/mm3 (3.60-5.2); RDW 14.6 % (11.6-15.6); WHITE BLOOD COUNT 7.9 K/mm3 (4.0-10.0)
[2019-02-22] MEDS: PRENATAL VITAMINS W/ FOLIC ACID TABLET (FP) PO SCH (09:14)
[2019-02-22] MEDS: IBUPROFEN 600 MG TABLET (FP) PO PRN ×2 (09:14→12:08)
[2019-02-22] MEDS: FERROUS SO4 325 MG TABLET (FP) PO SCH (09:14)
--- NOTE | 2019-02-22 09:37 | DS ---
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 Signs: Vital Signs Temperature 98.3 F 02/21/19 22:00 Pulse Rate 100 H 02/21/19 22:00 Respiratory Rate 18 02/21/19 22:00 Blood Pressure 135/78 02/21/19 22:00 O2 Sat by Pulse Oximetry (%) 99 02/19/19 22:00 Labs: CBC, BMP 02/22/19 07:44 02/19/19 00:00 Delivery - Delivery Type of Anesthesia: General EBL (cc): 300 Delivery, Single - Stages of Labor Date 1st Stage Initiatied: 02/18/19 Time 1st Stage Initiated: 21:00 Date 2nd Stage Initiated: 02/19/19 Time 2nd Stage Initiated: 09:40 Date of Delivery: 02/19/19 Time of Delivery: 20:26 Time Placenta Delivered: 20:27 - 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: Yes Name: Elaine Bowen Infant Gender: Female Weight: 7 lb 3 oz Position: Right, OA Total Hours ROM (Hrs/Mins): 19 HOURS/42 MINUTES - 1 Minute Total Score: 9 5 Minutes Total Score: 9 - [place] Feeding Plan Initial Plan: Elected not to breastfeed exclusively throughout hospitalization Discharge Summary Reason For Visit: ADMIT Current Active Problems 39 weeks gestation of (Acute) Chorioamnionitis, delivered, current hospitalization (Acute) Non-reassuring heart rate or rhythm affecting management of mother (Acute) Spontaneous rupture of amniotic membranes (Acute) Status post primary low transverse section (Acute) Hospital Course: Pt admitted on 02/18 with spontaneous rupture of membranes and in early labor. During labor the patient had fever and was subsequently diagnosed with chorioamnionitis. Pt underwent emergency c section pn 02/19 and after discussing the c section with patient by covering/bone char kiln tender doctor, the patient became unresponsive. She then underwent an emergency c section under general anesthesia. After delivery she was seen by neurology who recommended head CT scan as well as EEG but patient refused. Pt was stable on post op day 3 and was asking to be discharged home, neurology consult stated patient can get studies as outpatient. Will plan for neurology follow up after discharge. Condition: Good - Instructions Diet, Activity, Other Instructions: Physical activity Resume your normal everyday activity as tolerated but no heavy lifting or strenuous exercise until seen by your surgeon. You may walk unlimited amounts and climb stairs. You may resume driving the car when you feel safe and comfortable behind the wheel. No sexual activity as instructed. Wound care If there are tapes on the skin leave them in place. They will peel off in the next 7 to 10 days. Do Not Peel them off. You may shower the day after surgery. If there are tapes present on the skin, you may shower over them. Diet There are no dietary restrictions. Eat healthy, high-fiber foods. Drink 6 to 8 glasses of liquid each day. This will assist in keeping your bowels regular. Pain management You may take Tylenol or Ibuprofen (for example, Motrin, Advil etc.) as needed for pain. If any prescription pain medication is sent to your pharmacy please take for severe pain as directed only. Call MD for any of the following: Severe pain not relieved by medication Fever of 101 or higher Excessive bleeding or drainage on dressing Inability to urinate Severe headaches, light headed or dizziness Disposition: HOME - Home Medications Comprehensive Discharge Medication List: Ambulatory Orders Vitamins (Sjr) - 1 tab PO DAILY 02/11/19 Oxycodone HCl/Acetaminophen [Percocet 5-325 mg Tablet -] 1 tab PO Q4H #20 tablet MDD 6 02/22/19
[2019-02-22] MEDS: BISACODYL 10 MG SUPP.RECT RC PRN (12:07)
[2019-02-22 13:04] VITALS: BP 132/91; PULSE 88; TEMP 98
--- NOTE | 2019-03-01 18:37 | PATH ---
Surgical Pathology Report Patient Name: LAISHA BLAND Med. Rec. 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 Specimen(s) Received PLACENTA Clinical History Nonreassuring heart rate Final Diagnosis PLACENTA, SECTION: 667 G THIRD TRIMESTER PLACENTA WITH MODERATE ACUTE CHORIOAMNIONITIS, TRIVASCULAR UMBILICAL CORD WITH FOCAL MILD VASCULITIS, AND FOCAL INTRAPARENCHYMAL INFARCT (< 10% OF PLACENTAL SURFACE). Electronically Signed Guera Major M.D. Gross Description The specimen is received fresh labeled placenta and is a 667 gram, 22.0 x 13.5 x 3.3 cm. placenta with attached membranes and umbilical cord. The attached membranes are diaz, translucent with focal opacities and insert marginally. The umbilical cord measures 28 cm. in length and averages 1 cm. in diameter. The cord inserts eccentrically, 5 cm. to the nearest margin. No true knots or strictures are identified. Cut surface of the umbilical cord reveals 3 vessels. The surface is blanton-blue with minimal fibrin deposition and appropriate caliber vessels. The maternal surface is red-brown with focal defects. Sectioning reveals a 1.5 cm greatest dimension diaz, firm intraparenchymal lesion. The remaining placental parenchyma is red-brown and spongy. [place] sections are submitted in three cassettes as follows: 1-membrane roll and umbilical cord; 2-lesion; 6-[id number] section of placenta. 02/25/2019 [facility]02/25/2019
--- NOTE | 2019-03-08 08:29 | OP ---
DATE OF OPERATION: 02/18/2019 PREOPERATIVE DIAGNOSIS: A 39 weeks gestation, nonreassuring heart rate and chorioamnionitis. POSTOPERATIVE DIAGNOSIS: A 39 weeks gestation, nonreassuring heart rate and chorioamnionitis. PROCEDURE: Primary low transverse section. SURGEON: Abeba Buenrostro MD TRANSPORTATION JOB TITLES: Troy Barrientos MD ANESTHESIA: General. ESTIMATED BLOOD LOSS: 600 mL. DESCRIPTION OF PROCEDURE: Patient was taken to the operating room because she was unresponsive. While she was being prepped, patient was taken to the operating room. She was prepped and draped under sterile fashion. General anesthesia was administered. Then, a Pfannenstiel skin incision was made and carried down through the underlying layer of fascia. The fascia was incised in the midline and extended laterally. The superior aspect of the fascial incision was then grasped with Selin clamps, elevated, and the rectus muscle dissected off bluntly. Attention was then turned to inferior aspect of the fascial incision, which in a similar fashion was then grasped with Selin clamps, elevated, and the rectus muscle dissected off bluntly. The rectus muscle was then in the midline. The peritoneum was identified and entered sharply with the Metzenbaum scissors. The vesicouterine peritoneum was then grasped with and entered sharply with the Metzenbaum scissors. The lower uterine segment was then incised using a 10 blade. This incision was extended laterally, and a bladder flap created. This incision was then extended laterally, and the head delivered atraumatically. Nose and mouth were suctioned, and the cord clamped and cut. The was handed to the awaiting outside plant field engineer. Then, the placenta was removed manually. The uterus exteriorized and cleared of all clots and debris. The uterine incision was repaired using 0 Vicryl in a running fashion. The pelvis was then completely irrigated. The uterus was returned to the abdomen. The peritoneum was closed using 2-0 Biosyn. Then, the fascia was reapproximated using 0 Vicryl, and the skin was closed in a subcuticular fashion using 3-0 Vicryl. Patient tolerated the procedure well. Patient was taken to PACU in stable condition. PATHOLOGY: Placenta. Regulo PATRICIO/[id number]
== END 2019-02-22 12:50 | disposition home or self-care (01) | DRG 786 ==
LOC: JDEL 23:00 → JLDR 23:45 → J3W 02-20 00:31
PROVIDERS: ADMIT Obstetrics & Gynecology; ATTEND Obstetrics & Gynecology
PROC: 10D00Z1 Extraction of Products of Conception, Low, Open Approach (ICD-10-PCS; principal; 2019-02-19)
DX: O76 Abnormality in fetal heart rate and rhythm complicating labor and delivery (principal); O41.1230 Chorioamnionitis, third trimester, not applicable or unspecified; O69.81X0 Labor and delivery complicated by cord around neck, without compression, not applicable or unspecified; O90.89 Other complications of the puerperium, not elsewhere classified; R55 Syncope and collapse; Z3A.39 39 weeks gestation of pregnancy; Z37.0 Single live birth
CPT/HCPCS: 36415; 36600; 80048; 82803; 82962; 85025; 85610; 85730; 86593; 86850; 86900; 86901; 87389; 88307-TC

== ENCOUNTER 2021-05-14 09:36 | Emergency (ER) | payer OTHER ==
[2021-05-14 09:42] VITALS: BP 130/86; PULSE 92; TEMP 98.2; BMI 32.3
[2021-05-14] MEDS ORDERED: predniSONE 20 MG TABLET (UD) PO ONE (10:08)
[2021-05-14] MEDS ORDERED: diphenhydrAMINE HCL 25 MG CAPSULE (FP) PO ONE ×2 (10:08→10:16)
[2021-05-14] MEDS ORDERED: FAMOTIDINE 20 MG TABLET PO ONE (10:08)
[2021-05-14] MEDS ORDERED: FAMOTIDINE 20 MG TABLET ONE (10:17)
[2021-05-14] MEDS ORDERED: predniSONE 20 MG TABLET (UD) ONE ×2 (10:17→10:21)
== END 2021-05-14 10:23 | disposition home or self-care (01) ==
LOC: JER 09:36 → JERFT 09:36
DX: L50.9 Urticaria, unspecified (principal)
CPT/HCPCS: 99284-25

== ENCOUNTER 2023-08-31 09:05 | Emergency (ER) | payer OTHER ==
[2023-08-31 09:14] VITALS: BP 142/85; PULSE 102; RESP 16; TEMP 98.7; BMI 30.7
[2023-08-31] MEDS ORDERED: LACTATED RINGERS SOLUTION 1000 ML INFUS.BAG IV ONE (10:13)
[2023-08-31] MEDS ORDERED: ONDANSETRON 4 MG/2 ML VIAL IVPB ONE (10:13)
[2023-08-31] MEDS ORDERED: ACETAMINOPHEN 1000 MG/100 ML BAG IVPB ONE (10:13)
[2023-08-31] MEDS ORDERED: ONDANSETRON 4 MG/2 ML VIAL ONE (10:22)
[2023-08-31] MEDS ORDERED: ACETAMINOPHEN INJECTION 100 ML IVPB ONE (10:22)
[2023-08-31 11:24] LABS: BASO % 0.4 % (0-2.0); EOS % 0.6 % (0-4.5); HEMATOCRIT 39.9 % (32.4-45.2); HEMOGLOBIN 13.3 GM/dL (10.7-15.3); LYMPH % 12.5 % (8-40); MCH 30.8 pg (25.7-33.7); MCHC 33.4 g/dl (32.0-36.0); MEAN CELL VOLUME 92.1 fl (80-96); MEAN PLT VOLUME 8.9 fl (7.5-11.1); MONO % 4.1 % (3.8-10.2); NEUT % 82.4 % (42.8-82.8); PLATELET COUNT 307 10^3/uL (134-434); RBC 4.33 M/mm3 (3.60-5.2); RDW 13.3 % (11.6-15.6); WHITE BLOOD COUNT 10.3 K/mm3 (4.0-10.0)
[2023-08-31 11:30] LABS: POTASSIUM 3.7 mmol/L (3.5-5.1)
[2023-08-31 11:32] LABS: ALBUMIN 3.9 g/dl (3.4-5.0); BLOOD UREA NITROGEN 7.7 mg/dL (7-18); CALCIUM 9.1 mg/dL (8.5-10.1)
[2023-08-31 11:36] LABS: CREATININE 0.7 mg/dL (0.55-1.3)
[2023-08-31 11:37] LABS: BILIRUBIN,TOTAL 0.5 mg/dL (0.2-1); TOT PROT 7.5 g/dl (6.4-8.2)
[2023-08-31 11:40] LABS: URINE APPEARANCE TURBID; URINE COLOR RED; URINE GLUCOSE (UA) NEGATIVE (NEGATIVE)
[2023-08-31 11:41] LABS: URINE BILIRUBIN MODERATE (NEGATIVE); URINE PROTEIN 3+ (NEGATIVE); URINE RBC 3891 /uL (0-23.9); URINE UROBILINOGEN 0.2 mg/dL (0.2-1.0); URINE WBC 1369 /uL (0-25.8)
[2023-08-31 11:42] LABS: EPI CELLS 49.5 /uL (0-25.1); HYALINE CASTS 1.67 /uL (0-3.1); URINE BACTERIA 7 /uL (0-1359)
[2023-08-31] MEDS ORDERED: KETOROLAC TROMETHAMINE 30 MG/1 ML VIAL IVPUSH ONE (14:14)
[2023-08-31] MEDS ORDERED: KETOROLAC TROMETHAMINE 30 MG/1 ML VIAL ONE (14:38)
== END 2023-08-31 14:57 | disposition home or self-care (01) ==
LOC: JER 09:05
PROC: 3E033NZ Introduction of Analgesics, Hypnotics, Sedatives into Peripheral Vein, Percutaneous Approach (ICD-10-PCS; principal; 2023-08-31)
PROC: 3E0333Z Introduction of Anti-inflammatory into Peripheral Vein, Percutaneous Approach (ICD-10-PCS; 2023-08-31)
PROC: 3E033GC Introduction of Other Therapeutic Substance into Peripheral Vein, Percutaneous Approach (ICD-10-PCS; 2023-08-31)
DX: O20.9 Hemorrhage in early pregnancy, unspecified (principal); O26.899 Other specified pregnancy related conditions, unspecified trimester; R10.2 Pelvic and perineal pain; Z3A.00 Weeks of gestation of pregnancy not specified
CPT/HCPCS: 36415; 76817-TC; 80053; 81003; 84702; 84703; 85025; 86850; 86900; 86901; 87086; 87491; 87591; 96374; 96375; 99284-25; J0131